=== PATIENT | male | born 1995 | race Caucasian/White ===

== ENCOUNTER 2020-10-10 17:12 | Emergency (ER) | payer MEDICAID, OTHER ==
[~2020-10-10] VITALS: Ht 182.9 cm; Wt 104.0 kg
[2020-10-10 17:14] VITALS: BP 160/90
[2020-10-10] MEDS ORDERED: ADDE20CA3 PO ×2 (17:28→18:11)
== END 2020-10-10 18:16 | disposition home or self-care (01) ==
LOC: M ED 17:12
DX: Z76.0 Encounter for issue of repeat prescription (principal); F90.9 Attention-deficit hyperactivity disorder, unspecified type; F17.200 Nicotine dependence, unspecified, uncomplicated; Z79.899 Other long term (current) drug therapy